=== PATIENT | female | born 1995 | race Caucasian/White ===

== ENCOUNTER 2022-04-03 12:03 | Emergency (ER) | payer MEDICAID ==
[~2022-04-03] VITALS: Ht 152.4 cm; Wt 59.0 kg
[2022-04-03 13:48] LABS: BASOPHILS % 0.7 % (0.0-2.0); EOSINOPHILS % 0.4 % (0.0-5.0); HEMATOCRIT. 38.9 % (36.0-48.0); HEMOGLOBIN. 13.1 g/dL (12.0-16.0); LYMPHOCYTES % 21.1 % (20.0-50.0); MEAN CORPUSCULAR HEMOGLOBIN 29.1 pg (28.0-32.0); MEAN CORPUSCULAR VOLUME 86.7 fL (81.0-99.0); MEAN PLATELET VOLUME 8.6 fl (7.4-10.4); MONOCYTES % 9.7 % (2.0-8.0); NEUTROPHILS % 68.1 % (40.0-76.0); PLATELET 280 x1000/uL (130-400); RED BLOOD CELL COUNT 4.48 mill/uL (4.2-5.4); RED CELL DISTRIBUTION WIDTH 13.2 % (11.6-14.6)
[2022-04-03 13:51] LABS: CHLORIDE 99 mEq/L (98-107)
[2022-04-03] MEDS ORDERED: LIDOCAINE HCL 1% 10 MG/ML 10ML VIAL IJ NR (17:45)
[2022-04-03] MEDS ORDERED: CEPHALEXIN 250MG CAPSULE PO ONE (18:15)
[2022-04-03 18:16] VITALS: BP 118/73
[2022-04-03] MEDS ORDERED: IBUP-2028 MT (18:22)
[2022-04-03] MEDS ORDERED: CLIN-194 MT (18:22)
== END 2022-04-03 18:53 | disposition home or self-care (01) ==
LOC: ER 12:03
DX: L02.411 Cutaneous abscess of right axilla (principal); R07.89 Other chest pain; G40.909 Epilepsy, unspecified, not intractable, without status epilepticus; Z88.8 Allergy status to other drugs, medicaments and biological substances
CPT/HCPCS: 36415; 71260; 80053; 81025; 84484; 85025; 99285

== ENCOUNTER 2022-04-07 12:07 | Emergency (ER) | payer MEDICAID ==
[~2022-04-07] VITALS: Ht 152.4 cm; Wt 59.0 kg
[~2022-04-07 12:07] MED LIST: CLIN-194 MT; IBUP-2028 MT
[2022-04-07] MEDS ORDERED: LIDOCAINE HCL/PF 1% 10 MG/ML 5ML VIAL INFIL ONE (18:30)
[2022-04-07] MEDS ORDERED: ACETAMINOPHEN 325MG TABLET PO ONE (18:30)
[2022-04-07] MEDS ORDERED: CLINDAMYCIN HCL 150MG CAPSULE PO STA (18:40)
[2022-04-07] MEDS ORDERED: IBUPROFEN 400MG TABLET PO ONE (18:45)
[2022-04-07 18:48] VITALS: BP 131/87
== END 2022-04-07 19:16 | disposition home or self-care (01) ==
LOC: ER 12:07
DX: D48.7 Neoplasm of uncertain behavior of other specified sites (principal); G40.909 Epilepsy, unspecified, not intractable, without status epilepticus; Z88.8 Allergy status to other drugs, medicaments and biological substances
CPT/HCPCS: 99283; J3490